=== PATIENT | female | born 1965 | race Caucasian/White ===

== ENCOUNTER 2018-05-26 19:41 | Emergency (ER) | payer OTHER ==
[2018-05-26 19:52] VITALS: BP 154/96
[2018-05-26] MEDS ORDERED: Proparacaine 0.5% Ophth Soln 15 ML Bottle EYELF STA (21:19)
[2018-05-26] MEDS ORDERED: Fluorescein 0.6 MG Ophth Strip EYELF ONE (21:20)
--- NOTE | 2018-05-26 21:39 | EDM.PDOC ---
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 She presents with a burning sensation to her left eye, with watering and blurry vision. No prior left eye injury. The patient's PCP is Dr. Henderson. Left Eye Pain Score (Numeric/FACES): 4 - Related Data Allergies Allergy/AdvReac Type Severity Reaction Status Date / Time NANDO Inhibitors Allergy Agitation Verified 05/26/18 19:52 amlodipine Allergy Rash Verified 05/26/18 19:52 amoxicillin Allergy Cannot Verified 05/26/18 19:52 Remember ARB-Angiotensin Receptor Allergy palpitation Verified 05/26/18 19:52 Antagonist s aspartame Allergy Anaphylactic Verified 05/26/18 19:52 Shock aspirin Allergy Cannot Verified 05/26/18 19:52 Remember Calcium Channel Blocking Allergy Rash Verified 05/26/18 19:52 Agent Dilt hydrochlorothiazide Allergy Hives Verified 05/26/18 19:52 latex Allergy Cannot Verified 05/26/18 19:52 Remember orange Allergy Cannot Verified 05/26/18 19:52 Remember pentazocine lactate Allergy Cannot Verified 05/26/18 19:52 [From [place]] Remember Sulfa (Sulfonamide Allergy Cannot Verified 05/26/18 19:52 Antibiotics) Remember venom-wasp [wasp venom] Allergy Cannot Verified 05/26/18 19:52 Remember Home Meds: Home Meds Acetaminophen/Diphenhydramine [Tylenol Pm Ex-Strength Caplet] 1 each PO BEDTIME PRN 03/31/15 [History] Cholecalciferol (Vitamin D3) [Vitamin D3] 2 tab PO DAILY 03/31/15 [History] Cranberry-Calcium 1 tab PO DAILY 03/31/15 [History] Cyclobenzaprine [Flexeril] 10 mg PO TID PRN 03/31/15 [History] Diclofenac Sodium [Voltaren 1% Gel] 100 gm TOP QID PRN 03/31/15 [History] Echinacea 167 mg PO DAILY 03/31/15 [History] Excedrin Pm 1 tab PO BEDTIME PRN 03/31/15 [History] Flaxseed/Omega3,6,9/Fatty Acid [Flax Seed Oil 1,300 mg Softgel] 1 each PO DAILY 03/31/15 [History] Gluc 2KCl/Chondr/Marycarmen Hy/Hy Ac [Glucosamine & Chondroitin Cap] 1 each PO DAILY 03/31/15 [History] Hydrocodone/Acetaminophen [[place] 5-325] 1 - 2 tab PO Q4H PRN #60 tablet [Rx] Iron 18 mg PO DAILY PRN 03/31/15 [History] Multivitamin [Daily Multiple Vitamin] 1 tab PO DAILY 03/31/15 [History] Potassium 99 mg PO DAILY PRN 03/31/15 [History] Sertraline [Zoloft] 100 mg PO DAILY 03/31/15 [History] Simethicone [Gas-X] 80 mg PO Q6HR PRN 03/31/15 [History] Spironolactone [Aldactone] 100 mg PO DAILY 03/31/15 [History] Omeprazole 40 mg PO BID PRN 02/06/18 [History] Ranitidine HCl [Zantac] 150 mg PO BID PRN 02/06/18 [History] Dicyclomine [Bentyl] 20 mg PO Q6H PRN #10 tablet 02/07/18 [Rx] Ketorolac [Acular 0.5% Ophth Soln] 1 drop EYELF Q6H PRN #1 bottle 05/26/18 [Rx] Past Medical History HEENT History: Reports: Impaired Vision Other HEENT History: wears glasses Cardiovascular History: Reports: Hypertension Gastrointestinal History: Reports: Colon Polyp, Diverticulosis, Gastritis, Other (See Below) (Esophageal polyp. 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: LMP (Approximate): Other (See Below) (Ovarian cysts) Musculoskeletal History: Reports: Back Pain, Chronic (DDD), Fracture (left foot) Psychiatric History: Reports: Anxiety, Depression, Other (See Below) ( Fibromyalgia) - Past Surgical History HEENT Surgical History: Reports: Oral Surgery (wisdom teeth extraction), Tonsillectomy GI Surgical History: Reports: Appendectomy, Cholecystectomy (around 1996), Colonoscopy (x 1), EGD (x 2) Female Surgical History: Reports: Section (x 1), Hysterectomy ( partial), Other (See Below) (Ovarian cystectomy x 2) Musculoskeletal Surgical History: Reports: Arthroscopic Knee (right, x 2) Dermatological Surgical History: Reports: Other (See Below) (Lipoma excised right upper abdominal wall) Social & Family History - Family History Family Medical History: Noncontributory - Tobacco Use Smoking Status *Q: Current Every Day Smoker Years of Tobacco use: 39 Packs/Tins Daily: 1 Used Tobacco, but Quit: No - Caffeine Use Caffeine Use: Reports: Coffee - Alcohol Use Alcohol Use History: Yes Alcohol Use Frequency: Socially - Recreational Drug Use Recreational Drug Use: No - Living Situation & Occupation Living situation: Reports: , with Spouse Occupation: Employed (ABLE) ED ROS GENERAL - Review of Systems Review Of Systems: ROS reveals no pertinent complaints other than HPI. ED EXAM GENERAL W FULL EYE - Physical Exam Exam: See Below Exam Limited By: No Limitations General Appearance: Alert, WD/WN, No Apparent Distress Eyelids: Bilateral: Normal Appearance Conjunctiva & Sclera: Right: Normal Appearance, Left: Injected Cornea Exam: Left: Corneal Abrasion (2:00 position) Extraocular Movements: Bilateral: Intact Pupils: Normal Accommodation Pupillary Size: Bilateral: 5 mm Pupillary Reaction: Bilateral: Brisk Anterior Chamber: Bilateral: Normal Appearance Course - Vital Signs Last Recorded V/S: Last Vital Signs Temp 36.4 C 05/26/18 19:50 Pulse 79 05/26/18 19:50 Resp 18 05/26/18 19:50 BP 154/96 H 05/26/18 19:50 Pulse Ox 98 05/26/18 19:50 - Orders/Labs/Meds Meds: Medications Discontinued Medications Generic Name Dose Route Start Last Admin Trade Name Freq PRN Reason Stop Dose Admin Fluorescein Sodium 0.6 mg 05/26/18 21:20 Ful-Suzi EYELF 05/26/18 21:21 ONETIME ONE Proparacaine HCl 1 ml 05/26/18 21:19 Proparacaine 0.5% Ophth Soln EYELF 05/26/18 21:20 ONETIME STA - Re-Assessments/Exams Free Text/Narrative Re-Assessment/Exam: 05/26/18 21:35 The patient's left eye, examined with proparacaine and fluorescein under a Wood' s lamp, reveals a very obvious corneal abrasion at the 2:00 position. I will prescribe Acular. Departure - Departure Time of Disposition: 21:35 Disposition: Home, Self-Care 01 Condition: Good Clinical Impression: Corneal abrasion, left - Discharge Information *PRESCRIPTION DRUG MONITORING PROGRAM REVIEWED*: Not Applicable *COPY OF PRESCRIPTION DRUG MONITORING REPORT IN PATIENT LILLIANA: Not Applicable Prescriptions: Ketorolac [Acular 0.5% Ophth Soln] 1 drop EYELF Q6H PRN #1 bottle PRN Reason: Pain Instructions: Corneal Abrasion, [id number] Referrals: Aruna Fry MD [Primary Care Provider] - Forms: ED Department Discharge Additional Instructions: You were seen in the emergency room after getting poked in your left eye this morning. On examination in the ER, you have a corneal abrasion at the 2:00 position. A prescription for the eye-pain reliever Acular has been sent to the [facility], located just south and across the [address] from [facility]. They will be open between noon and 4:00 tomorrow afternoon. Instill 1 drop of Acular into your left eye every 6 hours, as needed for pain. If you continue to have eye pain beyond 3 days, please follow-up with an eye doctor for reevaluation. If any other problems, please do not hesitate to return to the ER.
== END 2018-05-26 21:44 | disposition home or self-care (01) ==
LOC: JD.ED 19:41
DX: S05.02XA Injury of conjunctiva and corneal abrasion without foreign body, left eye, initial encounter (principal); I10 Essential (primary) hypertension; F17.210 Nicotine dependence, cigarettes, uncomplicated; Z88.8 Allergy status to other drugs, medicaments and biological substances; Z88.1 Allergy status to other antibiotic agents; Z91.040 Latex allergy status; Z88.2 Allergy status to sulfonamides; Z79.899 Other long term (current) drug therapy; X58.XXXA Exposure to other specified factors, initial encounter
CPT/HCPCS: 99283

== ENCOUNTER 2019-11-04 10:28 | Emergency (ER) | payer OTHER ==
--- NOTE | 2019-11-04 11:30 | EDM.PDOC ---
ED HPI GENERAL MEDICAL PROBLEM - General Chief Complaint: Chest Pain Stated Complaint: CHEST PAIN PAST COVID PT WITH PNEUMONIA Time Seen by Provider: 11/04/19 11:03 Source of Information: Reports: Patient, RN Notes Reviewed - History of Present Illness INITIAL COMMENTS - FREE TEXT/NARRATIVE: 54 yr old female with onset of L chest wall pain2 days ago. It was on and off yesterday but worse during the night and continues worse today. The pain is sharp, worse with deep breathing, worse with certain types of movement of L arm. She does smoke. She had covid pneumonia a few months ago. She did get over that OK. She did do some lifting at work a few days ago. Chest Pain Score (Numeric/FACES): 10 - Related Data Allergies Allergy/AdvReac Type Severity Reaction Status Date / Time NANDO Inhibitors Allergy Agitation Verified 02/16/19 21:29 amlodipine Allergy Rash Verified 11/04/19 10:51 amoxicillin Allergy Cannot Verified 11/04/19 10:51 Remember ARB-Angiotensin Receptor Allergy palpitation Verified 11/04/19 10:51 Antagonist s aspartame Allergy Anaphylactic Verified 11/04/19 10:51 Shock aspirin Allergy Cannot Verified 11/04/19 10:51 Remember Calcium Channel Blocking Allergy Rash Verified 11/04/19 10:51 Agent Dilt hydrochlorothiazide Allergy Hives Verified 11/04/19 10:51 latex Allergy Cannot Verified 11/04/19 10:51 Remember orange Allergy Cannot Verified 11/04/19 10:51 Remember pentazocine lactate Allergy Cannot Verified 11/04/19 10:51 [From [place]] Remember Sulfa (Sulfonamide Allergy Cannot Verified 11/04/19 10:51 Antibiotics) Remember venom-wasp [wasp venom] Allergy Cannot Verified 11/04/19 10:51 Remember Home Meds: Home Meds Acetaminophen/Diphenhydramine [Tylenol Pm Ex-Strength Caplet] 1 each PO BEDTIME PRN 03/31/15 [History] Cholecalciferol (Vitamin D3) [Vitamin D3] 2 tab PO DAILY 03/31/15 [History] Cranberry-Calcium 1 tab PO DAILY 03/31/15 [History] Cyclobenzaprine [Flexeril] 10 mg PO TID PRN 03/31/15 [History] Diclofenac Sodium [Voltaren 1% Gel] 100 gm TOP QID PRN 03/31/15 [History] Echinacea 167 mg PO DAILY 03/31/15 [History] Excedrin Pm 1 tab PO BEDTIME PRN 03/31/15 [History] Flaxseed/Omega3,6,9/Fatty Acid [Flax Seed Oil 1,300 mg Softgel] 1 each PO DAILY 03/31/15 [History] Glucosam/Chondr/Collagn/Hyalur [Glucosamine & Chondroitin Cap] 1 each PO DAILY 03/31/15 [History] Iron 18 mg PO DAILY PRN 03/31/15 [History] Multivitamin [Daily Multiple Vitamin] 1 tab PO DAILY 03/31/15 [History] Potassium 99 mg PO DAILY PRN 03/31/15 [History] Sertraline [Zoloft] 100 mg PO DAILY 03/31/15 [History] Simethicone [Gas-X] 80 mg PO Q6HR PRN 03/31/15 [History] Spironolactone [Aldactone] 100 mg PO DAILY 03/31/15 [History] Omeprazole 40 mg PO BID PRN 02/06/18 [History] Ranitidine HCl [Zantac] 150 mg PO BID PRN 02/06/18 [History] Magnesium 0 mg PO DAILY 02/16/19 [History] Hydrocodone/Acetaminophen [Hydrocodon-Acetaminophen 5-325] 1 each PO Q4H PRN #20 tablet 02/17/19 [Rx] Ondansetron [Zofran] 4 mg PO Q6H PRN #20 tab 02/17/19 [Rx] predniSONE [Prednisone] 5 mg PO QAM #7 tablet 02/17/19 [Rx] Hydrocodone/Acetaminophen [[place] 5-325 Tablet] 1 each PO Q6HR PRN #10 tablet 11/04/19 [Rx] Naproxen [Naprosyn] 500 mg PO Q12HR #14 tab 11/04/19 [Rx] Past Medical History HEENT History: Reports: Impaired Vision Other HEENT History: wears glasses Cardiovascular History: Reports: Hypertension Respiratory History: Reports: Bronchitis, Recurrent Other Respiratory History: respiratory infections [04/11] Gastrointestinal History: Reports: Colon Polyp, Diverticulosis, Gastritis, Other (See Below) Other Gastrointestinal History: intuseseption 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 Denies any leg numbness/weakness currently Psychiatric History: Reports: Anxiety, Depression, Other (See Below) Endocrine/Metabolic History: Reports: Other (See Below) Other Endocrine/Metabolic History: Lt. Adrenal Mass Hematologic History: Reports: None Immunologic History: Reports: None Oncologic (Cancer) History: Reports: None Dermatologic History: Reports: None Other Dermatologic History: lipoma removed for RUQ - Infectious Disease History Infectious Disease History: Reports: None - Past Surgical History HEENT Surgical History: Reports: Oral Surgery, Tonsillectomy GI Surgical History: Reports: Appendectomy, Cholecystectomy, Colonoscopy, EGD Female Surgical History: Reports: Section, Hysterectomy, Other (See Below) Musculoskeletal Surgical History: Reports: Arthroscopic Knee Social & Family History - Family History Family Medical History: Noncontributory - Caffeine Use Caffeine Use: Reports: Soda - Living Situation & Occupation Living situation: Reports: , with Spouse Occupation: Employed (ABLE) ED ROS GENERAL - Review of Systems Review Of Systems: See Below Constitutional: Denies: Fever, Chills, Diaphoresis HEENT: Reports: No Symptoms Respiratory: Reports: Pleuritic Chest Pain. Denies: Shortness of Breath Cardiovascular: Reports: Chest Pain GI/Abdominal: Denies: Abdominal Pain, Nausea, Vomiting Musculoskeletal: Denies: Shoulder Pain, Arm Pain Skin: Reports: No Symptoms Neurological: Reports: No Symptoms ED EXAM, GENERAL - Physical Exam Exam: See Below General Appearance: Alert, Mild Distress Head: Atraumatic. No: Facial Swelling Neck: Supple Respiratory/Chest: No Respiratory Distress, Lungs Clear, Normal Breath Sounds, Other (there is tenderness of the L upper lateral chest, no swellng or bruising) Cardiovascular: Regular Rate, Rhythm GI/Abdominal: Soft, Non-Tender. No: Guarding Extremities: Normal Inspection, Normal Range of Motion Neurological: Alert, Oriented, No Motor/Sensory Deficits Skin Exam: Warm, Dry, Normal Color EKG INTERPRETATION EKG Date: 11/04/19 Rhythm: NSR P-Wave: Present QRS: Normal ST-T: Other (mild nonspecific st changes inf and lat leads) Course - Vital Signs Last Recorded V/S: Last Vital Signs Temp 97.2 F 11/04/19 10:46 Pulse 76 11/04/19 12:40 Resp 18 11/04/19 10:46 BP 139/86 11/04/19 12:40 Pulse Ox 99 11/04/19 12:40 - Orders/Labs/Meds Orders: Active Orders 24 hr Category Date Time Status EKG 12 Lead [EKG Documentation Completion] [RC] STAT Care 11/04/19 11:19 Active Labs: Laboratory Tests 11/04/19 11/04/19 Range/Units 10:45 10:45 WBC 11.66 H (3.98-10.04) K/mm3 RBC 4.28 (3.98-5.22) M/mm3 Hgb 14.2 (11.2-15.7) gm/dl Hct 43.0 (34.1-44.9) % MCV 100.5 H (79.4-94.8) fl MCH 33.2 H (25.6-32.2) pg MCHC 33.0 (32.2-35.5) g/dl RDW Std Deviation 49.4 H (36.4-46.3) fL Plt Count 445 H (182-369) K/mm3 MPV 9.4 (9.4-12.3) fl Neut % (Auto) 58.5 (34.0-71.1) % Lymph % (Auto) 31.6 (19.3-51.7) % [place] % (Auto) 6.4 (4.7-12.5) % Eos % (Auto) 2.4 (0.7-5.8) Baso % (Auto) 0.9 (0.1-1.2) % Neut # (Auto) 6.82 H (1.56-6.13) K/mm3 Lymph # (Auto) 3.69 (1.18-3.74) K/mm3 [place] # (Auto) 0.75 H (0.24-0.36) K/mm3 Eos # (Auto) 0.28 (0.04-0.36) K/mm3 Baso # (Auto) 0.10 H (0.01-0.08) K/mm3 Manual Slide Review Abnormal smear Troponin I < 0.017 (0.00-0.056) ng/mL - Re-Assessments/Exams Free Text/Narrative Re-Assessment/Exam: 11/04/19 12:15 CXR no acute findings, EKG OK, trop neg. She has quite marked L chest wall tenderness. Discharge instr. as documented. Departure - Departure Time of Disposition: 12:15 Disposition: Home, Self-Care 01 Condition: Fair Clinical Impression: Atypical chest pain, Chest wall pain Prescriptions: Naproxen [Naprosyn] 500 mg PO Q12HR #14 tab Hydrocodone/Acetaminophen [[place] 5-325 Tablet] 1 each PO Q6HR PRN #10 tablet PRN Reason: Pain Instructions: Chest Wall Pain, [id number] Referrals: Aruna Fry MD [Primary Care Provider] - Forms: ED Department Discharge Additional Instructions: Heat 3 to 4 times daily as needed. Naprosyn 500 mg twice daily for pain and inflamation. Tylenol in addition up to 3 times daily or hydrocodone if needed for severe pain. Prescriptions have been sent to the clinic Pharmacy. Do not drive or work when taking hydrocodone. Follow up clinic if not much better within 3 to 5 days as expected. Return to ED as needed if symptoms worsening in any way. Sepsis Event Note (ED) - Evaluation Sepsis Screening Result: No Definite Risk - Focused Exam Vital Signs: Vital Signs Temp Pulse Resp BP Pulse Ox 11/04/19 12:40 76 139/86 99 11/04/19 10:46 97.2 F 84 18 158/81 H 99 - My Orders Last 24 Hours: My Active Orders 11/04/19 11:19 EKG 12 Lead [EKG Documentation Completion] [RC] STAT - Assessment/Plan Last 24 Hours: My Active Orders 11/04/19 11:19 EKG 12 Lead [EKG Documentation Completion] [RC] STAT
[2019-11-04 12:42] VITALS: BP 139/86; PULSE 76
--- NOTE | 2019-11-04 13:14 | CR ---
Chest: Portable view of the chest was obtained. Comparison: Prior chest x-ray of 04/08/14. Heart size and mediastinum are normal. Minimal discoid atelectasis within both lung bases. Lungs otherwise are clear with no acute parenchymal change. Bony structures show nothing acute. Impression: 1. Slight discoid atelectasis. 2. Nothing acute is otherwise seen on portable chest x-ray. Diagnostic code #2 This report was dictated in MDT
== END 2019-11-04 12:46 | disposition home or self-care (01) ==
LOC: JD.ED 10:28
DX: R07.89 Other chest pain (principal); I10 Essential (primary) hypertension; F41.9 Anxiety disorder, unspecified; F32.9 Major depressive disorder, single episode, unspecified; Z88.1 Allergy status to other antibiotic agents; Z88.8 Allergy status to other drugs, medicaments and biological substances; Z88.6 Allergy status to analgesic agent; Z91.040 Latex allergy status; Z91.018 Allergy to other foods; Z88.2 Allergy status to sulfonamides; Z91.030 Bee allergy status; Z79.899 Other long term (current) drug therapy
CPT/HCPCS: 36415; 71045; 71045-26; 84484; 85025; 93005; 93010; 99283; 99285-25

== ENCOUNTER 2023-08-23 12:56 | Emergency (ER) | payer BC, OTHER ==
[2023-08-23] MEDS: Diphtheria,Pertussis(Acell),Tetanus Vaccine 0.5 ML Syringe IM ONE (15:28)
[2023-08-23] MEDS: Clindamycin HCl 150 MG Cap PO ONE (15:29)
[2023-08-23 16:05] VITALS: BP 130/45; PULSE 88
== END 2023-08-23 16:06 | disposition home or self-care (01) ==
LOC: JD.ED 12:56
DX: S91.352A Open bite, left foot, initial encounter (principal); L03.116 Cellulitis of left lower limb; I10 Essential (primary) hypertension; Z91.048 Other nonmedicinal substance allergy status; Z88.6 Allergy status to analgesic agent; Z88.1 Allergy status to other antibiotic agents; Z88.8 Allergy status to other drugs, medicaments and biological substances; Z91.040 Latex allergy status; Z91.018 Allergy to other foods; Z88.2 Allergy status to sulfonamides; Z91.030 Bee allergy status; Z79.899 Other long term (current) drug therapy; Z90.49 Acquired absence of other specified parts of digestive tract; Z90.710 Acquired absence of both cervix and uterus; Z23 Encounter for immunization; W55.01XA Bitten by cat, initial encounter
CPT/HCPCS: 73630-26-LT; 73630-LT; 90471; 90715; 99283; 99283-25; A9270-GY